=== PATIENT | female | born 1955 | race Caucasian/White ===

== ENCOUNTER 2020-06-27 09:17 | Emergency (ER) | payer MEDICARE, SELFPAY ==
[2020-06-27 09:34] VITALS: BP 108/78; PULSE 88; RESP 18; TEMP 36.4; O2SAT 99
[2020-06-27 10:37] VITALS: BP 141/85
--- NOTE | 2020-06-27 10:42 | ED_ITS ---
HPI - Epistaxis General Chief complaint: Nasal Problem Stated complaint: nose bleed 2 hours Time Seen by Provider: 06/27/20 09:47 Source: patient Mode of arrival: Ambulatory Limitations: no limitations History of Present Illness HPI Narrative: Patient is a 65-year-old female with no past no known medical history presenting with right-sided epistaxis. She says been ongoing for last 2 hours winn on any antiplatelet or anticoagulation. No dizziness or lightheadedness. She has been pinching it tilting her head forward she even stuff something up there but it continues to bleed. Related Data Allergies Allergy/AdvReac Type Severity Reaction Status Date / Time No Known Drug Allergies Allergy Verified 06/27/20 09:55 Review of Systems Review of Systems Narrative: GENERAL: Denies chills,fever HEENT: See HPI RESPIRATORY: Denies dyspnea, cough, wheezing CARDIOVASCULAR: Denies chest pain, palpitations GASTROINTESTINAL: Denies nausea, vomiting MUSCULOSKELETAL: Denies extremity pain, injury SKIN: No rash, no laceration, no pruritus NEUROLOGIC: Denies weakness, dizziness, headache, numbness 8 point review of systems is negative except for those stated above and HPI Patient History Social History Smoking Status: Never smoker Smoking Status: Never smoker alcohol intake frequency: 0-2 drinks per day Substance Use Type: does not use Exam Initial Vital Signs Initial Vital Signs: Vital Signs Temperature 97.6 F 06/27/20 09:34 Pulse Rate 88 06/27/20 09:34 Respiratory Rate 18 06/27/20 09:34 Blood Pressure 108/78 06/27/20 09:34 Pulse Oximetry 99 06/27/20 09:34 GENERAL: Well-appearing, well-nourished and in no acute distress. NOSE: Clamp is removed no active bleeding found on right near or left ear no blood clot. Minimal blood in pharynx CARDIOVASCULAR: peripheral pulses in tact, cap refill <2 sec RESPIRATORY: No respiratory distress, speaks in full sentences without difficulty EXTREMITIES: Normal range of motion, no clubbing or edema. Neurovascularly intact NEUROLOGICAL: Cranial nerves II through XII grossly intact. Normal gait and speech. SKIN: Warm, dry, no petechiae, no rashes or lesions. Course Orders Ordered: Discontinued Medications Oxymetazoline HCl (Oxymetazoline Nasal [place] 15 Ml) 2 sprays NASAL NOW ONE Stop: 06/27/20 09:48 Vital Signs Vital signs: Vital Signs - 8 hr 06/27/20 09:34 06/27/20 10:37 Temperature 97.6 F Pulse Rate 88 Respiratory Rate 18 Blood Pressure 108/78 141/85 H Pulse Oximetry 99 MDM - Epistaxis MDM Narrative Medical decision making narrative: Patient is bleeding stopped with a nose clamp . Initially thought Afrin would need to be use it but it stopped without it. The patient has not had any recurrence of bleeding blood pressure is controlled. At this time can be discharged. Discharge Plan Departure Patient Disposition: Home Clinical Impression: Epistaxis Instructions: DI for Nosebleed Activity Restrictions/Additional Instructions: *You have been diagnosed with epistaxis *What to do: At this time you have nose clamp. You may use Afrin 1-2 sprays up the nose and clamp the nose for 30-60 minutes. If you are continuing to bleed despite this you may return to the nearest emergency department *Continue to take medications as directed *Follow up with your primary care provider in 2-3 days *Return to ER if you should have dizziness lightheadedness persistent nose bleeding or any new, worsening or concerning symptoms
== END 2020-06-27 10:56 | disposition home or self-care (01) ==
PROVIDERS: Emergency Provider Emergency Medicine
DX: R04.0 Epistaxis (principal)
CPT/HCPCS: 99281; A9270